=== PATIENT | male | born 1940 | race Caucasian/White ===

== ENCOUNTER → 2017-03-11 | Outpatient (CLI) | payer MEDICARE ==
[~2017-03-11] MED LIST: FLUT10SP NS; GADOBUTROL 10mMol/10ml INJECTION IV ONE; LANS30CA44 PO; LOVA20TA71 PO; SALINE FLUSH 10ml SYRINGE ONE; [UNRECOGNIZED DRUG - CODE] PO; [UNRECOGNIZED DRUG - OTHER]
--- NOTE | 2017-03-11 11:42 | DI ---
Indication: ITS.REASON: R41.3 OTHER AMNESIA PROCEDURE: MRI BRAIN W/WO CONTRAST: Encounter: Initial Comparisons: Head CT dated January 09, 2010 Technique: Multiplanar, multisequence, MR imaging of the head with and without contrast was acquired. Contrast: 7.5 mL of Gadavist FINDINGS: Mild generalized atrophy. 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 The ventricles are of normal size, shape, and contour for the patient's age. There are small nonspecific punctate areas of T2-weighted and T2 FLAIR weighted signal abnormality in the deep frontoparietal white matter that most likely represent small vessel ischemic disease. This is of a degree that is considered to be normal for the patient's age. The brain stem, cerebellum, and cerebral hemispheres otherwise have a normal morphologic appearance as well as MR signal intensity on all pulse sequences. Following intravenous administration of contrast, no areas of abnormal enhancement are evident. There are no areas of restricted diffusion to suggest an acute infarct. There is no evidence of an intracranial mass lesion, intracranial hemorrhage, or hydrocephalus. The visualized portions of the orbits, calvarium, and skull base demonstrate no significant abnormality. Mild left maxillary sinus disease. IMPRESSION: Old right cerebellar infarct. No acute intracranial abnormality. .
== END ==
LOC: IMA 10:29
PROVIDERS: ATTEND Family Medicine
DX: R41.3 Other amnesia (principal); R25.1 Tremor, unspecified; Z86.73 Personal history of transient ischemic attack (TIA), and cerebral infarction without residual deficits
CPT/HCPCS: 70553; A9585